=== PATIENT | female | born 1990 | race Caucasian/White ===

== ENCOUNTER 2016-08-14 10:03 | Inpatient (IN) ==
[2016-08-12 17:37] LABS: HEMATOCRIT 32.6 % (37.0-47.0); HEMOGLOBIN 11.5 g/dL (12.0-16.0); MCH 33.4 PG (27-31); MCHC 35.3 g/dL (33-37); MCV 94.8 FL (81-99); MPV 11.5 FL (7.4-10.4); RBC 3.44 XMIL (4.2-5.4)
[2016-08-14] MEDS ORDERED: KEFZOL 1 GM/D5W 1 GM/50 ML IVPB IV PRN (11:18)
[2016-08-14] MEDS ORDERED: REGLAN PO ONE (11:18)
[2016-08-14] MEDS ORDERED: LR 500 ML IV ONE (11:18)
[2016-08-14] MEDS ORDERED: PEPCID PO ONE (11:18)
[2016-08-14] MEDS ORDERED: LR 1,000 ML IV SCH (11:18)
[2016-08-14] MEDS ORDERED: SODIUM CHLORIDE 0.9% INJ ONE (11:30)
[2016-08-14] MEDS ORDERED: BICITRA PO ONE (11:30)
[2016-08-14] MEDS ORDERED: PEPCID IV ONE (11:30)
[2016-08-14] MEDS ORDERED: PITOCIN ONE (12:47)
[2016-08-14] MEDS ORDERED: ROBINUL ONE (12:47)
[2016-08-14] MEDS ORDERED: ZOFRAN ONE (12:47)
[2016-08-14] MEDS ORDERED: TORADOL ONE (12:47)
[2016-08-14] MEDS ORDERED: DURAMORPH ONE (12:52)
[2016-08-14] MEDS ORDERED: PITOCIN 20 UNITS/LR 20 UNITS/1,000 ML IV.SOLN ONE (13:47)
[2016-08-14] MEDS ORDERED: FENTANYL ONE (13:53)
[2016-08-14] MEDS ORDERED: MINERAL OIL ONE (13:58)
--- NOTE | 2016-08-14 14:27 | HISTORY AND PHYSICAL ---
CHIEF COMPLAINT: Polyhydramnios. HISTORY OF PRESENT ILLNESS: This is a 25-year-old, G3, P1-1-0-2, with intrauterine at 38+ 0 weeks by a 14+ 5 week ultrasound, EDC 08/28/2016, who presents to [facility] for scheduled repeat low transverse section with bilateral tubal ligation. The patient was late to obtain care, starting at 27 weeks, and care had been uncomplicated otherwise until ultrasound at 37+ 5 weeks revealed polyhydramnios. Patient has good movement. No loss of fluid. No vaginal bleeding. Occasional contraction. No abdominal pain, significant fevers, chills, nausea, vomiting, chest pain, or shortness of breath. OBSTETRICAL HISTORY: G1, full-term section secondary to "stomach surgeries in the past," and G2, 36 week repeat section secondary to distress. G3 current complicated by polyhydramnios. 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 PAST MEDICAL HISTORY: Significant for kidney stones, anxiety, lumbosacral back pain, degenerative disk disease, and scoliosis. PAST SURGICAL HISTORY: Significant for section x2, oral surgery for teeth extraction, as well as Achilles tendon repair bilaterally. MEDICATIONS: vitamins. ALLERGIES: Tramadol, Demerol, Dologesic, and Toradol. SOCIAL HISTORY: One-half pack per day smoker. Denies alcohol or illicit drug use. FAMILY HISTORY: Significant for hypertension, diabetes, coronary artery disease, and mental retardation in her father. REVIEW OF SYSTEMS: Negative. PHYSICAL EXAM: GENERAL: Well-developed, well-nourished white female, in no acute distress. HEENT: Pupils equally round, reactive to light. Extraocular muscles intact. Poor dentition. CHEST: Clear to auscultation bilaterally. CV: Regular rate and rhythm. No murmurs, rubs, or gallops. ABDOMEN: Soft, nontender, gravid. EXTREMITIES: No clubbing, cyanosis, or edema. SKIN: No focal lesions. NEURO: No focal deficits. ASSESSMENT AND PLAN: 1. Intrauterine at 38+ 0 weeks. 2. Polyhydramnios. 3. History of section x2. 4. Limited/late care. 5. Undesired fertility. PLAN: Repeat low transverse section with bilateral tubal ligation. The patient states that she is absolutely sure she does not desire future children and would like permanent sterilization. Risks and benefits of repeat section were discussed with the patient including risks of bleeding, infection, injury to bowel and bladder. The patient states that she understands these risks and would like to proceed forward. Risk of tubal sterilization failure being 1 in 300 were discussed. Patient would still like to proceed forward. cc: Paulo Rader MD
[2016-08-14] MEDS ORDERED: AMBIEN PO PRN (14:28)
[2016-08-14] MEDS ORDERED: DEMEROL PO PRN ×2 (14:28)
[2016-08-14] MEDS ORDERED: CYTOTEC PO PRN (14:28)
[2016-08-14] MEDS ORDERED: DEMEROL IM PRN (14:28)
[2016-08-14] MEDS ORDERED: PITOCIN 20 UNITS/LR 20 UNITS/1,000 ML IV.SOLN IV ONE (14:28)
[2016-08-14] MEDS ORDERED: PHENERGAN IM PRN (14:28)
[2016-08-14] MEDS ORDERED: MYLICON PO PRN (14:28)
[2016-08-14] MEDS ORDERED: HYDROXYZINE PO PRN (14:28)
[2016-08-14] MEDS ORDERED: DULCOLAX PR PRN (14:28)
[2016-08-14] MEDS ORDERED: PITOCIN IM PRN (14:28)
[2016-08-14] MEDS ORDERED: M-M-R II VACCINE SUBQ ONE (14:28)
[2016-08-14] MEDS ORDERED: BOOSTRIX VACCINE IM ONE (14:28)
[2016-08-14] MEDS ORDERED: PERCOCET-5 PO PRN (14:28)
[2016-08-14] MEDS ORDERED: HYDROXYZINE IM PRN (14:28)
--- NOTE | 2016-08-14 16:30 | OPERATIVE NOTE ---
PROCEDURE DATE: 08/14/2016 PREOPERATIVE DIAGNOSES: 1. Intrauterine at 38 plus 0 weeks. 2. History of section x2. 3. Polyhydramnios. 4. Undesired fertility. POSTOPERATIVE DIAGNOSES: 1. Intrauterine at 38 plus 0 weeks. 2. History of section x2. 3. Polyhydramnios. 4. Undesired fertility. PROCEDURE: Repeat low transverse section with [place] bilateral tubal ligation. SURGEON: Paulo Rader MD. ANESTHESIA: Sarwat Razo MD. FINDINGS: Normal uterus, ovaries, and bilateral fallopian tubes. COMPLICATIONS: None apparent. ESTIMATED BLOOD LOSS: 700 mL. SPECIMENS REMOVED: Placenta, cord blood. OPERATIVE COURSE: The patient was identified and consents reviewed. Spinal anesthesia was administered without complications. Patient was placed on the operative table in dorsal supine position with a leftward tilt. Abdomen was prepped and draped in normal sterile fashion. A Pfannenstiel skin incision was made and carried through the underlying layer of fascia. This was extended laterally with Paiz scissors. The superior portion of the fascial incision was grasped with Jane clamps, elevated, and the underlying rectus muscles were dissected off with Paiz scissors. Inferior portion performed in a similar manner. The rectus muscle was then identified and in the midline. The peritoneum was identified and entered bluntly. Bladder blade was then inserted and a low transverse hysterotomy was made. Membranes were ruptured. Significant amount of clear fluid was noted. Roughly 2 L. found to be in cephalic presentation. delivered atraumatically. Nuchal cord x1 was noted and reduced post delivery. Nose and mouth were bulb suctioned. Cord was clamped and cut. Infant handed off to awaiting nursing staff. Cord blood was then obtained. Placenta was then manually extracted. The uterus was exteriorized and cleaned of all clots and debris. The hysterotomy was repaired in 2 layers, first with a running locked 0 chromic and a 2nd imbricating layer was needed to achieve adequate hemostasis. Bilateral fallopian tubes were then identified to the fimbriated end. Right tube was then grasped in the midpoint and Flov[place] tubal ligation was performed using plain gut suture. Contralateral side was performed in a similar manner. The uterus was then returned to the intraperitoneal space. Bilateral fallopian tube remnants were then found to be hemostatic with suture in place. The hysterotomy was re-examined and found to be hemostatic. The peritoneum was then reapproximated using 0 chromic. Fascia was closed with 0 Vicryl in a running fashion. The skin was closed with 4-0 Biosyn. The patient tolerated the procedure well. She has taken to the recovery room afterwards in stable condition. cc: Paulo Rader MD
[2016-08-14] MEDS ORDERED: ZOFRAN ODT PO PRN (17:30)
[2016-08-14] MEDS ORDERED: NARCAN INJ PRN (17:30)
[2016-08-14] MEDS ORDERED: ZOFRAN IV PRN ×2 (17:30)
[2016-08-14] MEDS ORDERED: BENADRYL IV PRN (17:30)
[2016-08-14] MEDS: MORPHINE IV PRN ×2 (17:40→21:50)
[2016-08-14] MEDS: PITOCIN 10 UNITS/LR 10 UNIT/1,000 ML IV.SOLN IV SCH (18:24)
[2016-08-14] MEDS: MYLICON PO SCH ×2 (19:02→20:29)
[2016-08-14] MEDS: XANAX PO SCH (20:29)
[2016-08-14] MEDS: PERICOLACE PO SCH (20:29)
[2016-08-14] MEDS ORDERED: NICODERM PATCH TD PRN (21:32)
[2016-08-15] MEDS: PITOCIN 10 UNITS/LR 10 UNIT/1,000 ML IV.SOLN IV SCH (02:23)
[2016-08-15] MEDS: XANAX PO SCH ×4 (02:23→20:26)
[2016-08-15] MEDS: MORPHINE IV PRN ×4 (02:26→21:02)
[2016-08-15 05:25] LABS: HEMATOCRIT 30.2 % (37.0-47.0); HEMOGLOBIN 10.3 g/dL (12.0-16.0); MCH 32.5 PG (27-31); MCHC 34.1 g/dL (33-37); MCV 95.3 FL (81-99); MPV 12.3 FL (7.4-10.4); RBC 3.17 XMIL (4.2-5.4)
[2016-08-15] MEDS: MYLICON PO SCH ×3 (07:32→20:25)
[2016-08-15] MEDS: PERCOCET-10 PO PRN ×3 (11:09→20:25)
[2016-08-15] MEDS ORDERED: LR 1,000 ML IV SCH (14:28)
[2016-08-15] MEDS: PERICOLACE PO SCH (20:26)
[2016-08-15] MEDS ORDERED: DILAUDID IM ONE (21:10)
[2016-08-16] MEDS: XANAX PO SCH ×3 (02:37→13:31)
[2016-08-16] MEDS: PERCOCET-10 PO PRN ×4 (02:37→13:31)
[2016-08-16] MEDS: MYLICON PO SCH ×2 (08:10→11:10)
[2016-08-16 12:31] LABS: MANUAL DIFF NEEDED? NO
[2016-08-16 12:36] LABS: BASO% 0.1 % (0.0-0.8); EOS# 0.08 X1000 (0.0-0.7); EOS% 0.9 % (0.0-10.0); HEMATOCRIT 32.6 % (37.0-47.0); HEMOGLOBIN 11.3 g/dL (12.0-16.0); IMM GRAN# 0.03 X1000 (0.0-0.04); IMM GRAN% 0.3 % (0.0-0.5); LYMPH# 1.34 X1000 (1.2-3.4); LYMPH% 15.5 % (20.5-51.1); MCH 32.9 PG (27-31); MCHC 34.7 g/dL (33-37); MONO# 0.68 X1000 (0.11-0.59); MONO% 7.8 % (1.7-9.3); MPV 12.1 FL (7.4-10.4); NEUT% 75.4 % (42.2-75.2); PLT 98 X1000 (130-400); RBC 3.43 XMIL (4.2-5.4)
[2016-08-16 13:48] VITALS: BP 135/93
--- NOTE | 2016-08-17 06:03 | DISCHARGE SUMMARY ---
ADMISSION DATE: 08/14/2016 DISCHARGE DATE: 08/16/2016 PRINCIPAL DIAGNOSIS: Intrauterine at 38 plus 0 weeks. SECONDARY DIAGNOSES: 1. Polyhydramnios. 2. Limited/late care. 3. Undesired fertility. 4. Thrombocytopenia. PRINCIPAL PROCEDURE: Repeat low transverse section with Owen bilateral tubal ligation. HOSPITAL COURSE: Patient was admitted on 08/14/2016 for a scheduled repeat low transverse section with bilateral tubal ligation. Procedure was performed without complications. The patient was subsequently transferred to labor and delivery where postoperative care has remained uneventful with the exception of thrombocytopenia with platelets at 87,000. The patient has had no issues with bleeding and notes that her lochia is less than menses. The patient's pain is well controlled on p.o. pain medications. The patient has no nausea or vomiting. She is tolerating a regular diet. Patient is stable for discharge on postoperative day #2, pending repeat CBC. CONDITION ON DISCHARGE: Stable. ELIMINATION CAPACITY: Independent. FEEDING CAPACITY: Independent. LOCOMOTION CAPACITY: Independent. REHABILITATION POTENTIAL: Good. PROGNOSIS: Good. DISCHARGE MEDICATIONS: Include Percocet 5/325 one to two tablets p.o. q.6 hours p.r.n. pain. DIET: Patient is to maintain a regular diet. PHYSICAL ACTIVITY: As tolerated. DISCHARGE INSTRUCTIONS: The patient is ordered to maintain pelvic rest x6 weeks. The patient is ordered to call or return if fever greater than 100.4, heavy vaginal bleeding, foul smelling vaginal discharge, or any other acute changes. She is to be discharged home with orders to follow up in clinic in 1 week. cc: Paulo Rader MD
== END 2016-08-16 14:35 | disposition home or self-care (01) ==
LOC: P.LD 10:03
PROVIDERS: ADMIT Obstetrics & Gynecology; ATTEND Obstetrics & Gynecology